=== PATIENT | female | born 2000 | race Caucasian/White ===

== ENCOUNTER 2024-11-10 14:32 | Outpatient (AMB) | payer MEDICAID, SELFPAY ==
[2024-11-10 14:48] VITALS: BP 110/71; PULSE 92; RESP 17; TEMP 36.7; O2SAT 98; BMI 34.1
--- NOTE | 2024-11-10 14:48 | OBCLNT_ITS ---
Vital Signs 11/10/24 14:48 Height 1.57 m Height Method Stated Weight 84.595 kg Weight Measurement Method Standing Scale BMI 34.1 BP 110/71 Blood Pressure Source Automatic Cuff Blood Pressure Location Right Upper Arm Position Sitting Respiration 17 Pulse 92 Pulse Source Monitor Temp 98.1 F Temp Source Temporal Artery Scan Pulse Oximetry (%) 98 Oxygen Delivery Method Room Air Allergies/Home Meds Allergies & Medications Allergies No Known Allergies Allergy (Verified 11/10/24 14:49) Medication Reconciliation vits no.126-ferrous fum 28 mg iron-folic acid 800 mcg tablet (Classic ) tab PO 11/10/24 [History Confirmed 11/10/24] Intake Visit Data Collection New Patient or Established: New Patient (never been to [facility]) Reason for Visit:: OBI TRANSFER Seen by Clinical Staff ONLY (RN/MA): No Auricular Therapist Required: No Do You Feel Safe at Home: Yes Authorities Contacted: N/A PCP or OBGYN visit in last 3 months: No Hx Now: Yes Are you currently on any form of Control: No Pain Present Currently: No Pain Scale Used: Thao-Moreno/Numerical Pain scale:: 0 Smoking Status Smoking Status: Never smoker Questionnaires Covid-19 Vaccine Questionnaire Has patient been vacinated for Covid-19 Have you been vacinated for Covid-19: No PHQ-9 PHQ-2 Over the last 2 weeks, how often have you been bothered by any of the following problems? 1. Little interest or pleasure in doing things: not at all 2. Feeling down, depressed, or hopeless: not at all Total score: 0 PHQ-9 3. Trouble falling or staying asleep, or sleeping too much: Not at all 4. Feeling tired or having little energy: Not at all 5. Poor appetite or overeating: Not at all 6. Feeling bad about yourself - or that you are a failure or have let yourself or your family down: Not at all 7. Trouble concentrating on things, such as reading the newspaper or watching television: Not at all 8. Moving or speaking so slowly that other people could have noticed? - Or the opposite - being so fidgety or restless that you have been moving around a lot more than usual: not at all 9. Thoughts that you would be better off or of hurting yourself in some way: Not at all Total score: 0 If you checked off any problems, how difficult have these problems made it for you to do your work, take care of things at home, or get along with other people?: not difficult at all Source: Developed by Drs. Eugene Schwartz, Lisa Aragon, James Neri and colleagues, with an educational mauricio from [employer]. Depression screen completed yes Social History Living Situation History Marital Status: Life Partner Lives With: Significant Other Housing: House Tobacco History Smoking Status: Never smoker Second Hand Smoke Exposure: No Alcohol History Alcohol Intake: Never Domestic Abuse History Do You Feel Safe at Home: Yes History of Present Illness HPI Narrative Drea Becker, , presents for routine visit at 28 weeks gestation. No contractions, LOF, VB and reports good FM. Denies PRYOR, VC, and epigastric pain. - Drea Becker is a female presenting for transfer of care from [facility], Dr. Solomon. - Estimated due date: 01-23-2025 - Based on last menstrual period - Confirmed by early ultrasound on 07-31-2024 - Obstetric history: - 1, Para 0 - No history of previous uterine surgery - Patient is Rh-negative and due for RhoGAM injection - Chlamydia positive on initial labs (07-18-2024) - Patient reports no current concerns or symptoms - Fetus identified as female through NIPT - Planned name: [facility] Initial Visit OB Flowsheet OB Flowsheet Initial Weight: Not Recorded Date -?-?-?-?-?-?-?-?-?-?-?-?- EGA Weight BP Alb Glu CTX Pres Fundal ht FHR Mov Dilation Station Effacement Hx Notes Visit Note 11/10/24 -?-?-?-?-?-?-?-?-?-?-?-?- 29w 3d 84.595 kg 110/71 absent unknown 28 160 active No CTX/LOF/VB, good FM. Rh-negative, Rhogam given today. heart rate 160 bpm. Plan: F/u 4 weeks, then q2 weeks. Service Tech/Welder on movement monitoring, signs of labor, preeclampsia precautions. OB History : 1 Para: 0 Exam General General Appearance: alert, in no apparent distress and healthy appearing Head Head exam: atraumatic Neck Neck exam: Present normal inspection and trachea midline Chest Chest inspection: Present normal inspection and symmetric chest wall rise External exam: Present normal external exam; Absent tenderness Neuro Neurological exam: Present oriented X3 Psych Psychiatric exam: Present normal affect and normal mood Office Procedures OB Clinic LOC & Office Proc's Nursing/Assessment Patient Status: Initial/New Patient OB Clinic Nursing Assessment: Medication Reconciliation, Update PMH in EMR and Vital Signs OB Clinic Coordination of Care: Complex Care and Chronic Disease 1-5, Consent,records obtained, informed consent, Education Simp Pt/Fam and Staff clarify orders Special Needs: Heart tones New Patient Charge New Patient Point Assignment: 1114 New Patient Point Charge: LEAD RIDER Level 3 ([id number]) Injection/Vaccine Admin Admin 1st Vaccine: Yes Office Meds Rhophylac 1,500 unit (300 mcg)/2 mL injection syringe Performing Provider: Franklin Peters MD Performing Location: [facility] Administered by: Josi Spencer MA on 11/10/24 15:09 Dose Route Admin Location Dispensed Lot Number Expiration Date [facility] Director 1,500 unit IM RIGHT GLUTE 2 mL [id number] 10/17/26 16820-720-65 [employer] BERD Comments: PT WIATED 15 MIN NO REACTION Assessment & Plan Diagnosis / Problem List (1) Supervision of high risk , unspecified, third trimester: Status: Acute (2) Rh negative state in antepartum period: Status: Acute Plan Problem List - , first trimester - Rh-negative blood type - Chlamydia infection Assessment at 28 weeks gestation with FILOMENA 01/23/2025 based on LMP and consistent with early ultrasound. Patient is Rh-negative, requiring Rhogam administration. Chlamydia positive on initial labs. One-hour glucose tolerance test result of 145 on 10/18/2024. NIPT negative, consistent with female fetus. Normal heart rate of 160 bpm on current exam. All other labs within normal limits, including hemoglobin 12.4, platelets 215, negative antibody screen, RPR non-reactive, HIV negative, hepatitis B negative, rubella immune, and AFP negative. Plan - Administer Rhogam injection (patient is Rh-negative) - Schedule next appointment in 4 weeks - Subsequent appointments to be scheduled every 2 weeks after the next visit
== END 2024-11-10 15:17 | disposition home or self-care (01) ==
LOC: HODSOBC 14:32
PROVIDERS: Supervising Provider Obstetrics & Gynecology; Visit Provider Obstetrics & Gynecology
DX: O09.893 Supervision of other high risk pregnancies, third trimester (principal); O26.893 Other specified pregnancy related conditions, third trimester; Z67.91 Unspecified blood type, Rh negative; Z3A.29 29 weeks gestation of pregnancy
CPT/HCPCS: 90471; 96372; 99203; J3490; G0463; J2791

== ENCOUNTER 2024-12-26 09:07 | Outpatient (AMB) | payer MEDICAID, SELFPAY ==
[2024-12-26 09:25] VITALS: BP 123/84; PULSE 100; RESP 17; TEMP 36.6; O2SAT 98; BMI 36.8
--- NOTE | 2024-12-26 09:25 | AMB.OBVISIT ---
Vital Signs 12/26/24 09:25 Height 1.57 m Height Method Measured Weight 90.832 kg Weight Measurement Method Standing Scale BMI 36.8 BP 123/84 Blood Pressure Source Automatic Cuff Blood Pressure Location Right Upper Arm Position Sitting Respiration 17 Pulse 100 Pulse Source Monitor Temp 97.8 F Temp Source Temporal Artery Scan Pulse Oximetry (%) 98 Oxygen Delivery Method Room Air Allergies/Home Meds Allergies & Medications Allergies No Known Allergies Allergy (Verified 01/20/25 18:57) Medication Reconciliation vits no.126-ferrous fum 28 mg iron-folic acid 800 mcg tablet (Classic ) 1 tab PO QDAY 11/10/24 [History Confirmed 01/15/25] Intake Visit Data Collection New Patient or Established: Established Patient (seen at [facility] within 3 years) Reason for Visit:: OBC Consent obtained for Telemed Visit: No Seen by Clinical Staff ONLY (RN/MA): No [place] Reo Required: No Do You Feel Safe at Home: Yes Authorities Contacted: N/A PCP or OBGYN visit in last 3 months: Yes Date of Last PCP or OBGYN visit: 11/10/24 Hx Now: Yes Are you currently on any form of Control: No Pain Present Currently: No Pain Scale Used: Thao-Moreno/Numerical Pain scale:: 0 Smoking Status Smoking Status: Never smoker Questionnaires Covid-19 Vaccine Questionnaire Has patient been vacinated for Covid-19 Have you been vacinated for Covid-19: No PHQ-9 PHQ-2 Over the last 2 weeks, how often have you been bothered by any of the following problems? 1. Little interest or pleasure in doing things: not at all PHQ-9 8. Moving or speaking so slowly that other people could have noticed? - Or the opposite - being so fidgety or restless that you have been moving around a lot more than usual: not at all Source: Developed by Drs. Eugene Schwartz, Lisa Aragon, James Neri and colleagues, with an educational mauricio from [employer]. Social History Living Situation History Lives With: Significant Other Housing: House Tobacco History Smoking Status: Never smoker Second Hand Smoke Exposure: No Alcohol History Alcohol Intake: Never Domestic Abuse History Do You Feel Safe at Home: Yes Care OB Visit Log OB Flowsheet Initial Weight: Not Recorded Date <del>?</del> EGA Weight BP Alb Glu CTX Pres Fundal ht FHR Mov Dilation Station Effacement Hx Notes Visit Note 11/10/24 <del>?</del> 29w 3d 84.595 kg 110/71 absent unknown 28 160 active No CTX/LOF/VB, good FM. Rh-negative, Rhogam given today. heart rate 160 bpm. Plan: F/u 4 weeks, then q2 weeks. Environmental Technology Professor on movement monitoring, signs of labor, preeclampsia precautions. 12/26/24 <del>?</del> 36w 0d 90.832 kg 123/84 occasional cephalic 36 170 active - Patient reports: - No contractions - No pressure - No other issues - movement: Active - Patient denies any current concerns or symptoms - Follow-up appointment scheduled for 1 week - Continue weekly appointments until 39 weeks gestation - At 39 weeks, check for cervical dilation - Patient instructed to perform vaginal swab for Group B Strep screening - No intervention planned before 39 weeks unless spontaneous labor occurs - Option for induction after 39 weeks if desired - Due date confirmed as January 23 01/02/25 <del>?</del> 37w 0d 92.306 kg 130/81 absent cephalic 37 158 active 37w0d , GBS negative, cephalic presentation, no CTX/LOF/VB, FHR 158, FM present. Plan: Return in 1 week, continue routine care, membrane sweep at 39w, recommend walking and ball exercises, go to L&D if CTX or concerning symptoms. 01/09/25 <del>?</del> 38w 0d 92.986 kg 119/83 absent cephalic 38 126 active - No contractions - Feeling pressure, which is noted to be normal - Experiencing carpal tunnel symptoms due to fluid retention - Active movement - No leaking or bleeding - Some vaginal discharge, which is noted to be normal - Follow-up appointment scheduled for 39 weeks gestation - Cervical check and membrane sweep planned for next appointment - Continue vitamins - Maintain hydration to prevent UTIs - Stay active FILOMENA Calculator Estimated Delivery Date Method Current WG Current Estimate 01/23/25 LMP (Certain) 40w 0d Office Procedures OB Clinic LOC & Office Proc's Nursing/Assessment Patient Status: Established Patient OB Clinic Nursing Assessment: Medication Reconciliation, Update PMH in EMR and Vital Signs OB Clinic Coordination of Care: Complex Care and Chronic Disease 1-5, Consent,records obtained, informed consent, Education Simp Pt/Fam and Results/Orders obtained Special Needs: Heart tones Established Patient Charge Established Patient Point Assignment: 110 Established Patient Point Charge: EP Level 3 (80-115) Assessment & Plan Diagnosis / Problem List (1) Supervision of high risk , unspecified, third trimester: Status: Acute
== END 2024-12-26 09:38 | disposition home or self-care (01) ==
LOC: HODSOBC 09:07
PROVIDERS: Supervising Provider Obstetrics & Gynecology; Visit Provider Obstetrics & Gynecology
DX: O09.93 Supervision of high risk pregnancy, unspecified, third trimester (principal); Z3A.36 36 weeks gestation of pregnancy; Z36.85 Encounter for antenatal screening for Streptococcus B
CPT/HCPCS: 99213; G0463

== ENCOUNTER 2025-01-02 13:42 | Outpatient (AMB) | payer MEDICAID, SELFPAY ==
[2025-01-02 14:06] VITALS: BP 130/81; PULSE 86; RESP 17; TEMP 36.3; O2SAT 98; BMI 37.4
--- NOTE | 2025-01-02 14:06 | OBCLNT_ITS ---
Vital Signs 01/02/25 14:06 Height 1.57 m Height Method Measured Weight 92.306 kg Weight Measurement Method Standing Scale BMI 37.4 BP 130/81 Blood Pressure Source Automatic Cuff Blood Pressure Location Right Upper Arm Position Sitting Respiration 17 Pulse 86 Pulse Source Monitor Temp 97.3 F Temp Source Temporal Artery Scan Pulse Oximetry (%) 98 Oxygen Delivery Method Room Air Allergies/Home Meds Allergies & Medications Allergies No Known Allergies Allergy (Verified 01/02/25 14:07) Medication Reconciliation vits no.126-ferrous fum 28 mg iron-folic acid 800 mcg tablet (Classic ) tab PO 11/10/24 [History Confirmed 01/02/25] Intake Visit Data Collection New Patient or Established: Established Patient (seen at [facility] within 3 years) Reason for Visit:: OBC Consent obtained for Telemed Visit: No Seen by Clinical Staff ONLY (RN/MA): No Coach Tour Driver Required: No Do You Feel Safe at Home: Yes Authorities Contacted: N/A PCP or OBGYN visit in last 3 months: Yes Date of Last PCP or OBGYN visit: 12/26/24 Hx Now: Yes Are you currently on any form of Control: No Pain Present Currently: No Pain Scale Used: Thoa-Moreno/Numerical Pain scale:: 0 Smoking Status Smoking Status: Never smoker Questionnaires Covid-19 Vaccine Questionnaire Has patient been vacinated for Covid-19 Have you been vacinated for Covid-19: No PHQ-9 PHQ-2 Over the last 2 weeks, how often have you been bothered by any of the following problems? 1. Little interest or pleasure in doing things: not at all PHQ-9 8. Moving or speaking so slowly that other people could have noticed? - Or the opposite - being so fidgety or restless that you have been moving around a lot more than usual: not at all Source: Developed by Drs. Eugene Schwartz, Lisa Aragon, James Neri and colleagues, with an educational mauricio from [employer]. Social History Living Situation History Lives With: Significant Other Housing: House Tobacco History Smoking Status: Never smoker Second Hand Smoke Exposure: No Alcohol History Alcohol Intake: Never Domestic Abuse History Do You Feel Safe at Home: Yes Care OB Visit Log OB Flowsheet Initial Weight: Not Recorded Date -?-?-?-?-?-?-?-?-?-?-?-?- EGA Weight BP Alb Glu CTX Pres Fundal ht FHR Mov Dilation Station Effacement Hx Notes Visit Note 11/10/24 -?-?-?-?-?-?-?-?-?-?-?-?- 29w 3d 84.595 kg 110/71 absent unknown 28 160 active No CTX/LOF/VB, good FM. Rh-negative, Rhogam given today. heart rate 160 bpm. Plan: F/u 4 weeks, then q2 weeks. Commodities Trader on movement monitoring, signs of labor, preeclampsia precautions. 01/02/25 -?-?-?-?-?-?-?-?-?-?-?-?- 37w 0d 92.306 kg 130/81 absent cephalic 37 158 active 37w0d , GBS negative, cephalic presentation, no CTX/LOF/VB, FHR 158, FM present. Plan: Return in 1 week, continue routine care, membrane sweep at 39w, recommend walking and ball exercises, go to L&D if CTX or concerning symptoms. FILOMENA Calculator Estimated Delivery Date Method Current WG Current Estimate 01/23/25 LMP (Certain) 37w 0d Office Procedures OB Clinic LOC & Office Proc's Nursing/Assessment Patient Status: Established Patient OB Clinic Nursing Assessment: Medication Reconciliation, Update PMH in EMR and Vital Signs OB Clinic Coordination of Care: Complex Care and Chronic Disease 1-5, Consent,records obtained, informed consent, Education Simp Pt/Fam, 4+ Authorizations needed, Lab and Imaging orders and Results/Orders obtained Special Needs: Heart tones Established Patient Charge Established Patient Point Assignment: 150 Established Patient Point Charge: EP Level 4 (120-155) Assessment & Plan Diagnosis / Problem List (1) Supervision of high risk , unspecified, third trimester: Status: Acute (2) Rh negative state in antepartum period: Status: Acute
== END 2025-01-02 14:20 | disposition home or self-care (01) ==
LOC: HODSOBC 13:42
PROVIDERS: Supervising Provider Obstetrics & Gynecology; Visit Provider Obstetrics & Gynecology
DX: O09.893 Supervision of other high risk pregnancies, third trimester (principal); Z67.91 Unspecified blood type, Rh negative; Z3A.37 37 weeks gestation of pregnancy
CPT/HCPCS: 99214; G0463

== ENCOUNTER 2025-01-09 09:07 | Outpatient (AMB) | payer MEDICAID, SELFPAY ==
[2025-01-09 09:12] VITALS: BP 119/83; PULSE 98; RESP 17; TEMP 36.8; O2SAT 98; BMI 37.7
--- NOTE | 2025-01-09 09:12 | OBCLNT_ITS ---
Vital Signs 01/09/25 09:12 Height 1.57 m Height Method Measured Weight 92.986 kg Weight Measurement Method Standing Scale BMI 37.7 BP 119/83 Blood Pressure Source Automatic Cuff Blood Pressure Location Right Upper Arm Position Sitting Respiration 17 Pulse 98 Pulse Source Monitor Temp 98.2 F Temp Source Temporal Artery Scan Pulse Oximetry (%) 98 Oxygen Delivery Method Room Air Allergies/Home Meds Allergies & Medications Allergies No Known Allergies Allergy (Verified 01/20/25 18:57) Medication Reconciliation vits no.126-ferrous fum 28 mg iron-folic acid 800 mcg tablet (Classic ) 1 tab PO QDAY 11/10/24 [History Confirmed 01/15/25] Intake Visit Data Collection New Patient or Established: Established Patient (seen at [facility] within 3 years) Reason for Visit:: OBC Consent obtained for Telemed Visit: No Seen by Clinical Staff ONLY (RN/MA): No Sleep Scientist Required: No Do You Feel Safe at Home: Yes Authorities Contacted: N/A PCP or OBGYN visit in last 3 months: Yes Date of Last PCP or OBGYN visit: 01/02/25 Hx Now: Yes Are you currently on any form of Control: No Pain Present Currently: No Pain Scale Used: Thao-Moreno/Numerical Pain scale:: 0 Smoking Status Smoking Status: Never smoker Questionnaires Covid-19 Vaccine Questionnaire Has patient been vacinated for Covid-19 Have you been vacinated for Covid-19: No PHQ-9 PHQ-2 Over the last 2 weeks, how often have you been bothered by any of the following problems? 1. Little interest or pleasure in doing things: not at all PHQ-9 8. Moving or speaking so slowly that other people could have noticed? - Or the opposite - being so fidgety or restless that you have been moving around a lot more than usual: not at all Source: Developed by Drs. Eugene Schwartz, Lisa Aragon, James Neri and colleagues, with an educational mauricio from [employer]. Social History Living Situation History Lives With: Significant Other Housing: House Tobacco History Smoking Status: Never smoker Second Hand Smoke Exposure: No Alcohol History Alcohol Intake: Never Domestic Abuse History Do You Feel Safe at Home: Yes Care OB Visit Log OB Flowsheet Initial Weight: Not Recorded Date -?-?-?-?-?-?-?-?-?-?-?-?- EGA Weight BP Alb Glu CTX Pres Fundal ht FHR Mov Dilation Station Effacement Hx Notes Visit Note 11/10/24 -?-?-?-?-?-?-?-?-?-?-?-?- 29w 3d 84.595 kg 110/71 absent unknown 28 160 active No CTX/LOF/VB, good FM. Rh-negative, Rhogam given today. heart rate 160 bpm. Plan: F/u 4 weeks, then q2 weeks. Contract Clerk on movement monitoring, signs of labor, preeclampsia precautions. 01/02/25 -?-?-?-?-?-?-?-?-?-?-?-?- 37w 0d 92.306 kg 130/81 absent cephalic 37 158 active 37w0d , GBS negative, cephalic presentation, no CTX/LOF/VB, FHR 158, FM present. Plan: Return in 1 week, continue routine care, membrane sweep at 39w, recommend walking and ball exercises, go to L&D if CTX or concerning symptoms. 01/09/25 -?-?-?-?-?-?-?-?-?-?-?-?- 38w 0d 92.986 kg 119/83 absent cephalic 38 126 active - No contractions - Feeling pressure, which is noted to be normal - Experiencing carpal tunnel symptoms due to fluid retention - Active movement - No leaking or bleeding - Some vaginal discharge, which is noted to be normal - Follow-up appointment scheduled for 39 weeks gestation - Cervical check and membrane sweep plan eva for next appointment - Continue vitamins - Maintain hydration to prevent UTIs - Stay active FILOMENA Calculator Estimated Delivery Date Method Current WG Current Estimate 01/23/25 LMP (Certain) 40w 0d Office Procedures OB Clinic LOC & Office Proc's Nursing/Assessment Patient Status: Established Patient OB Clinic Nursing Assessment: Medication Reconciliation, Update PMH in EMR and Vital Signs OB Clinic Coordination of Care: Complex Care and Chronic Disease 1-5, Consent,records obtained, informed consent and Education Simp Pt/Fam Special Needs: Heart tones Established Patient Charge Established Patient Point Assignment: 105 Established Patient Point Charge: EP Level 3 (80-115) Assessment & Plan Diagnosis / Problem List (1) Normal labor and delivery: Status: Acute (2) Supervision of high risk , unspecified, third trimester: Status: Acute
== END 2025-01-09 09:34 | disposition home or self-care (01) ==
LOC: HODSOBC 09:07
PROVIDERS: Supervising Provider Obstetrics & Gynecology; Visit Provider Obstetrics & Gynecology
DX: O09.893 Supervision of other high risk pregnancies, third trimester (principal); O12.03 Gestational edema, third trimester; Z3A.38 38 weeks gestation of pregnancy
CPT/HCPCS: 99213; G0463

== ENCOUNTER 2025-01-15 15:06 | Inpatient (IN) | payer MEDICAID, SELFPAY ==
[2025-01-15] VITALS (121 sets, daily range): BP systolic 121–166; BP diastolic 71–101; PULSE 67–99; RESP 16–99; TEMP 36.9; O2SAT 88–100; BMI 38.1
[2025-01-15 17:07] LABS: Collection Type, Urine Clean Catch
[2025-01-15 17:11] LABS: Basophils # (Auto) 0.0 Thou/mm3 (0.0-0.2); Basophils % (Auto) 0 % (0-2.5); Eosinophils # (Auto) 0.0 Thou/mm3 (0.0-0.5); Eosinophils % (Auto) 0 % (0-10); Hematocrit 35.0 % (36.0-46.0); Hemoglobin 12.0 g/dL (12.0-16.0); Immature Granulocytes Auto 0.09 Thou/mm3 (0.00-0.00); Lymphocytes # (Auto) 1.6 Thou/mm3 (1.0-4.8); Lymphocytes % (Auto) 15 % (10-50); Mean Corpuscular HGB Conc 34.3 g/dl (31.0-37.0); Mean Corpuscular Hemoglobin 30.3 pg (25.0-35.0); Mean Corpuscular Volume 88 fL (80-100); Monocytes # (Auto) 0.5 Thou/mm3 (0.0-0.8); Monocytes % (Auto) 5 % (0-12); Neutrophils # (Auto) 8.7 Thou/mm3 (1.8-7.7); Neutrophils % (Auto) 79 % (37-80); Nucleated Red Blood Cell # 0.00 Thou/mm3 (0.00-0.00); Nucleated Red Blood Cell % 0 /100 WBC (0); Platelet Count 177 Thou/mm3 (140-440); RDW Standard Deviation 42.4 fL (36.4-46.3); Red Blood Count 3.96 Miln/mm3 (4.00-5.20); White Blood Count 10.9 Thou/mm3 (3.6-11.0)
--- NOTE | 2025-01-15 17:18 | XR_ITS ---
Examination: Complete OB ultrasound greater than 14 weeks Date and time of exam: January 15, 2025, 1809 hrs. Indications: Labor evaluation, unknown weight Findings: Viable intrauterine single fetus with single amniotic sac presentation cephalic Cardiac motion 133 BPM. Placenta anterior grade 3. Umbilical cord insertion 3 vessel seen. Amniotic fluid index 4.6 cm. Cervix 4.1 cm. Ovaries obscured by the fetus.. Composite estimated gestational age based on BPD, head circumference, abdominal circumference, femur length is 39 weeks 1 day. Estimated weight 3799.1 g.. Survey of intracranial anatomy, spinal anatomy, abdominal anatomy, four-chamber heart performed with no abnormalities identified. Impression: Viable intrauterine gestation cephalic presentation..
[2025-01-15 17:39] LABS: Fibrinogen 408 mg/dL (175-375); INR 0.9 (0.9-1.3); Partial Thromboplastin Time 27.8 Seconds (22.0-36.0); Prothrombin Time 9.8 Seconds (9.0-12.2)
[2025-01-15 17:55] LABS: Bacteria,Urine 1+; Bilirubin,Urine Negative (Negative); Blood,Urine Trace (Negative); Clarity,Urine Clear (Clear/Hazy); Color,Urine Lt-Yellow (Lt Yel-Yel); Glucose, Urine Negative (Negative); Ketones,Urine Trace (Negative); Leukocyte Esterase,Urine Negative (Negative); Nitrite,Urine Negative (Negative); PH,Urine 6.5 (5.0-7.0); Protein,Urine 2+ (Neg - Trace); RBC,Urine 1 /hpf (0-3); Specific Gravity,Urine 1.010 (1.001-1.035); Squamous Epithelial Cell,Urine 6 /hpf (0-5); Urobilinogen,Urine Negative mg/dL (0.0-1.0); WBC,Urine 4 /hpf (0-5)
[2025-01-15 18:05] LABS: Creatinine,Random Urine 75 mg/dL (30-125); Protein Total, Random Urine 145 mg/dL (1-14)
[2025-01-15 18:07] LABS: Albumin, Serum 3.4 gm/dL (3.5-5.0); Albumin/Globulin Ratio 1.7 (1.2-2.2); Alkaline Phosphatase 180 U/L (46-116); Anion Gap 11 (7-16); Aspartate Amino Transferase 13 U/L (0-34); BUN/Creatinine Ratio 12 Ratio (12-20); Bilirubin,Total 0.4 mg/dL (0.3-1.2); Blood Urea Nitrogen 6 mg/dL (9-23); Calcium 9.2 mg/dL (8.3-10.6); Calcium (Corrected) 9.7 mg/dL (8.5-10.1); Carbon Dioxide 19.8 mMol/L (20.0-31.0); Chloride 110 mMol/L (98-107); Creatinine (Component) 0.5 mg/dL (0.6-1.3); Estimated Creatinine Clearance 187.6 mL/min (>60); Globulin 2.0 gm/dL (2.3-3.5); Glucose 92 mg/dL (74-106); LDH (Lactate Dehydrogenase) 165 U/L (120-246); Osmolality,Calculated 278 (275-295); Potassium 3.9 mMol/L (3.4-5.1); Sodium 141 mMol/L (136-145); Total Protein 5.4 gm/dL (5.7-8.2); Uric Acid 4.5 mg/dL (3.1-7.8); eGFR > 60 See Note
[2025-01-15 18:19] LABS: Alanine Aminotransferase 9 U/L (10-49)
[2025-01-15] MEDS: RINGERS LACTATED 1000 ML 1,000 ML 999 ML IV (20:16)
[2025-01-15] MEDS: RINGERS LACTATED 1000 ML 1,000 ML 125 ML IV (20:17)
[2025-01-15 20:18] LABS: Syphilis Nonreactive (Nonreactive)
--- NOTE | 2025-01-15 20:42 | ESHP_ITS ---
Documentation for date of: 01/15/25 OB Labor/Induct. HPI History of Present Illness Chief complaint: labor : 1 Para: 0 Term pregnancies: 0 pregnancies: 0 Living children: 0 History of Abortions: Spontaneous and Elective: 0 History of Vaginal deliveries: 0 History of sections: No History of : No Date of last menstrual period: 04/18/25 FILOMENA: 01/23/25 Gestational Age (weeks): 38 Gestational Age (days): 6 Gestational age based on last menstrual period: -13 History of present illness: 24-year-old 1 para 0 with complaints of labor admitted to labor and delivery. Patient was OB transfer from Dr. Solomon office with records. Last. April 18, 2025. Estimated due date January 23, 2025. Patient has a history of positive chlamydia. Her and her partner were treated with Zithromax x 1. Test of cure in October was negative. GC has been negative throughout. Patient is O-, antibody screen negative, she got RhoGAM at 28 weeks. Hepatitis B negative, HIV negative, hep C negative, had a abnormal 1 hour every 3 hours normal. And GBS is negative. Patient denies existence of any chronic illness. Denies social habits. She has had no surgeries. History of Present Dating criteria: LMP confirmed by 1st trimester US Adequate Care: Yes Ultrasounds: normal 1st trimester US and normal mid trimester US Obstetrical complications: none Medical complications: none Review of Systems Review of Systems Systems Reviewed: All systems reviewed, normal except as documented Past Medical History Surgical History SURGICAL: Negative Section Meds Home Medications and Allergies Home Medications ?Medication ?Instructions ?Recorded ?Confirmed ?Type vits no.126-ferrous fum 1 tab PO QDAY 2 5 01/15/25 History 28 mg iron-folic acid 800 mcg tablet (Classic ) Allergies Allergy/AdvReac Type Severity Reaction Status Date / Time No Known Allergies Allergy Verified 01/15/25 15:29 OB Exam Physical Exam Vital signs: Temp Pulse Resp BP Pulse Ox 98.5 F 90 16 133/78 H 100 01/15/25 15:06 01/15/25 20:28 01/15/25 19:13 01/15/25 20:28 01/15/25 20:40 Narrative: Normal heart rate and rhythm. Lungs clear no wheezes. Gravid abdomen. Gynecoid pelvis. Estimated weight 3700 g. Blood pressures on admission were elevated 140s over 80s. There was 1 blood pressure 140/90 and then they came down 120s over 70. Her PIH labs she had an elevated protein creatinine ratio that was 1.9. Livers were normal. 3+ proteinuria. And CONSTANCE was 4.6. Cervical exam on admission was 250-3. And then the patient progressed to 4/80/- 2 Detailed Labor and Delivery Exam Dilation (cm): 4 Effacement (%): 80 Cervix position: mid station: -2 Consistency: soft Presentation: Vertex Cervical ripeness score: 8 Membranes: intact Baseline heart rate: 135 monitor accelerations: 15x15 monitor decelerations: None terminal press operator variability: Moderate (11-25) Contraction frequency (min): 4-7 Contraction duration (sec): 30 Tachysystole: No Contraction intensity: Mild OB Results Labs 01/15/25 16:15 01/15/25 16:15 Labs: Short CBC 01/15/25 Range/Units 16:15 WBC 10.9 (3.6-11.0) Thou/mm3 Hgb 12.0 (12.0-16.0) g/dL Hct 35.0 L (36.0-46.0) % Plt Count 177 (140-440) Thou/mm3 BMP 01/15/25 16:15 Sodium 141 Potassium 3.9 Chloride 110 H Carbon Dioxide 19.8 L BUN 6 L Creatinine 0.5 L Glucose 92 Calcium 9.2 Liver Function 01/15/25 Range/Units 16:15 Total Bilirubin 0.4 (0.3-1.2) mg/dL AST 13 (0-34) U/L ALT 9 L (10-49) U/L Alkaline Phosphatase 180 H (46-116) U/L Albumin 3.4 L (3.5-5.0) gm/dL Urine 01/15/25 Range/Units 16:15 Urine Color Lt-Yellow (Lt Yel-Yel) Urine Clarity Clear (Clear/Hazy) Urine pH 6.5 (5.0-7.0) Ur Specific [place] 1.010 (1.001-1.035) Urine Protein 2+ A (Neg - Trace) Urine Glucose (UA) Negative (Negative) OB Assessment & Plan Assessment and Plan (1) Normal labor and delivery: Status: Acute Additional Plan Induction method: per pitocin protocol Plan: augmentation and consult MD baltazar
[2025-01-15] MEDS: OXYTOCIN in NS 30 units 30 UNIT/500 ML BAG IV (22:30)
[2025-01-16] VITALS (174 sets, daily range): BP systolic 114–148; BP diastolic 62–93; PULSE 65–169; RESP 16–20; TEMP 37–37.4; O2SAT 84–100
[2025-01-16] MEDS: OXYTOCIN INJ 10 UNIT/ML VIAL IM (08:12)
[2025-01-16] MEDS: MINERAL OIL 30 ML UDC TOP (08:16)
[2025-01-16] MEDS: TRANEXAMIC ACID 1,000 MG IVPB 1,000 MG/100 ML BAG 200 MG IV (08:41)
--- NOTE | 2025-01-16 08:44 | OBDSUM_ITS ---
Data (Pena) Data Hx Section: No : 1 Term: 0 : 0 Livin Abortions: Spontaneous & Theraputic: 0 Delivery Data (Pena) Labor Data Initiation of labor: Spontaneous Induction/Augmentation Agent: Pitocin ROM date: 01/16/25 ROM time: 04:45 Amniotic membrane rupture type: Spontaneous Amniotic fluid description: Clear Delivery Data EDC: 01/23/25 EDC calculated by:: LMP/early US confirmation Date of arrival to unit: 01/15/25 Time of arrival to unit: 15:08 Onset of labor date: 01/15/25 Onset of labor time: 20:00 Complete dilation date: 01/16/25 Complete dilation time: 07:01 [place] delivery date: 01/16/25 [place] delivery time: 08:08 Gestational age (weeks): 38 Gestational age (days): 6 Placenta delivery date: 01/16/25 Placenta delivery time: 08:13 Delivered by: crys asencio Delivery nurse: malka Noe nurse: yaneli moraes Hand Upper And Bottom Lacer at delivery: No Support person(s) at delivery: fob, sister Delivery Method Delivery method: Normal Vaginal Delivery Presentation: Vertex position: OA Anesthesia Type Anesthesia Type: Epidural Delivery Room Medications Delivery room medications: Pitocin 10 u IM, Pitocin 20 u IV, Cytotec 800 ND and other (TXA) Placenta Placenta delivery description: Spontaneous (inspected. intact) Cord blood sent to lab: Yes cord blood collection: Cord Blood Type Episiotomy Episiotomy description: Midline Perineal repair Sutures used for repair: 3.0 Vicryl (2.0) EBL Estimated blood loss (ml): 400 Umbilical Cord cord description: 3 Vessels and Nuchal Cord (x1) Data (Pena) Data order: 1 [place]'s gender: Female Identification band number: [id number] weight (gms): 3.41 g Weight (pounds): 0 lbs and 0.1 ozs length: 52 cm 1 minute: 7 5 minutes: 9
[2025-01-16] MEDS: OXYTOCIN in NS 20 units 20 UNIT/1,000 ML BAG 125 UNIT IV (09:00)
[2025-01-16] MEDS: IBUPROFEN TAB 400 MG TABLET 800 MG PO ×2 (09:38→20:41)
[2025-01-16] MEDS: ACETAMINOPHEN 325 MG TABLET 650 MG PO (17:40)
[2025-01-16 17:50] LABS: Basophils # (Auto) 0.0 Thou/mm3 (0.0-0.2); Basophils % (Auto) 0 % (0-2.5); Eosinophils # (Auto) 0.0 Thou/mm3 (0.0-0.5); Eosinophils % (Auto) 0 % (0-10); Hematocrit 28.9 % (36.0-46.0); Hemoglobin 9.9 g/dL (12.0-16.0); Immature Granulocytes Auto 0.14 Thou/mm3 (0.00-0.00); Lymphocytes # (Auto) 1.2 Thou/mm3 (1.0-4.8); Lymphocytes % (Auto) 7 % (10-50); Mean Corpuscular HGB Conc 34.3 g/dl (31.0-37.0); Mean Corpuscular Hemoglobin 30.8 pg (25.0-35.0); Mean Corpuscular Volume 90 fL (80-100); Monocytes # (Auto) 1.1 Thou/mm3 (0.0-0.8); Monocytes % (Auto) 6 % (0-12); Neutrophils # (Auto) 15.1 Thou/mm3 (1.8-7.7); Neutrophils % (Auto) 86 % (37-80); Nucleated Red Blood Cell # 0.00 Thou/mm3 (0.00-0.00); Nucleated Red Blood Cell % 0 /100 WBC (0); Platelet Count 134 Thou/mm3 (140-440); RDW Standard Deviation 43.4 fL (36.4-46.3); Red Blood Count 3.21 Miln/mm3 (4.00-5.20); White Blood Count 17.6 Thou/mm3 (3.6-11.0)
[2025-01-16] MEDS: DOCUSATE SOD 100 MG CAPSULE PO (20:33)
[2025-01-17] VITALS (8 sets, daily range): BP systolic 111–132; BP diastolic 73–88; PULSE 67–98; RESP 12–20; TEMP 36.6–38; O2SAT 98–100
[2025-01-17] MEDS: ACETAMINOPHEN 325 MG TABLET 650 MG PO ×3 (00:18→15:45)
[2025-01-17] MEDS: IBUPROFEN TAB 400 MG TABLET 800 MG PO ×2 (08:27→17:46)
[2025-01-17] MEDS: DOCUSATE SOD 100 MG CAPSULE PO ×2 (08:27→22:05)
--- NOTE | 2025-01-17 08:49 | ESPR_ITS ---
Subjective Subjective Interval history: Complains of occasional headache that is improved with Tylenol ibuprofen. Denies blurred vision or epigastric pain. Patient is breast and bottlefeeding. No dizziness. Backache that is improved by wearing a maternity girdle Exam Vital Signs Temp Pulse Resp BP Pulse Ox O2 Del Method 98.3 F 98 17 111/73 100 Room Air 01/17/25 04:45 01/17/25 04:45 01/17/25 04:45 01/17/25 04:45 01/17/25 04:45 01/17/25 04:45 Narrative Exam Normal heart rate and rhythm. Breasts are soft. Euthyroid. Fundus firm below the mellitus. Perineum is healing intact. Minimal swelling. Small lochia. Uterus is well involuted below umbilicus. Negative Homans' sign. Objective Labs 01/16/25 16:30 01/15/25 16:15 Labs: Laboratory Results - last 24 hr 01/16/25 01/16/25 10:41 16:30 WBC 17.6 H D RBC 3.21 L Hgb 9.9 L D Hct 28.9 L MCV 90 MCH 30.8 MCHC 34.3 RDW Std Deviation 43.4 Plt Count 134 L D Neut % (Auto) 86 H Lymph % (Auto) 7 L [place] % (Auto) 6 Eos % (Auto) 0 Baso % (Auto) 0 Neut # (Auto) 15.1 H Lymph # (Auto) 1.2 [place] # (Auto) 1.1 H Eos # (Auto) 0.0 Baso # (Auto) 0.0 Immature Gran # (Auto) 0.14 H Absolute Nucleated RBC 0.00 Immature Gran % 1 H Nucleated RBC % 0 Rho(D) IG Studies Ready Maternal Bleed Negative Assessment & Plan Problem List (1) Normal labor and delivery: Status: Acute Assessment Comment Assessment comment: 24 hr pp oh Plan Comment Plan Comment: Discharge home today with baby. Continue vitamins and iron. Tylenol ibuprofen for pain. Discussed danger signs symptoms and ER precautions. Discussed signs symptoms of infection. Discussed comfort measures for midline episiotomy including sitz bath's and applying ice packs. Increase fluids. Can and return in a week for check and elevated BP thank you thank Time Spent With Patient Time: Total time spent is greater than 50% in coordination of care (as documented) at patient's floor/unit and/or counseling patient:
--- NOTE | 2025-01-17 08:52 | PD.LDDS ---
DS: Providers Provider Date of admission: 01/15/25 19:32 Primary care physician: Physician No Primary/Family Admitting Provider: Pearl Martínez CNM Attending Provider on Admission: Joey Lopez MD Consults: 01/16/25 09:08 Referral Routine Comment: Attending Provider on DC: Pearl Martínez CNM Discharging Provider: Pearl Martínez CNM DS: Diagnosis Problem List Completed Was Problem List Reviewed/Reconciled?: Yes Summary/Hosp Course Brief History: 24-year-old 1 para 0 with complaints of labor admitted to labor and delivery. Patient was OB transfer from Dr. Solomon office with records. Last. April 18, 2025. Estimated due date January 23, 2025. Patient has a history of positive chlamydia. Her and her partner were treated with Zithromax x 1. Test of cure in October was negative. GC has been negative throughout. Patient is O-, antibody screen negative, she got RhoGAM at 28 weeks. Hepatitis B negative, HIV negative, hep C negative, had a abnormal 1 hour every 3 hours normal. And GBS is negative. Patient denies existence of any chronic illness. Denies social habits. She has had no surgeries. Peripartum Data Delivery Method: Normal Vaginal Delivery Episiotomy Description: Midline Laceration Description: no complications: none Time Spent with Patient Time attestation: Total time spent providing and/or coordinating discharge services: Exam Vital Signs Temp Pulse Resp BP Pulse Ox O2 Del Method 98.3 F 98 17 111/73 100 Room Air 01/17/25 04:45 01/17/25 04:45 01/17/25 04:45 01/17/25 04:45 01/17/25 04:45 01/17/25 04:45 Discharge Plan Plan Patient Disposition: HOME (Self Care) Patient condition on transfer: Stable Prescriptions/Referrals Prescriptions/Med Rec: No Action Classic 28 mg iron- 800 mcg tablet 1 tab PO QDAY Referrals: No Primary/Family,Physician [Primary Care Provider] - Patient/Caregiver Discharge Instructions Meds to Beds: No Discharge Activity: resume usual activities Print Language: Kinyarwanda Activity Restrictions/Additional Instructions: Discharge home with baby. Continue to use maternity girdle for support and comfort. Discussed PIH symptoms with patient and ER precautions with parameters. Tylenol ibuprofen for pain. Discussed danger signs and symptoms. Discussed comfort measures and sitz bath's for episiotomy. No sex. Increase fluids. And return in a week for BP check Stand Alone Forms: Frances Award Info., Patient Portal Info Letter Discharge Order Discharge Orders: Discharge (Routine); Ordered 01/17/25 Ordered By: Pearl Martínez Planned Discharge Date 01/17/25
[2025-01-17] MEDS: DIPHTH,PERTUSS(ACELL),TET VAC 0.5 ML SYR- ADULT IMi (09:29)
[2025-01-17] MEDS: RINGERS LACTATED 1000 ML 1,000 ML 999 ML IV (16:19)
--- NOTE | 2025-01-17 17:01 | XR_ITS ---
Examination: PA lateral chest 2 views Technique: Upright PA lateral chest 2 views Date and time: January 17, 2025, 1724 hrs. Indications: Sepsis alert Findings: Normal heart size No lobar pneumonia. The osseous structures are intact Impression: No lobar pneumonia
--- NOTE | 2025-01-17 17:18 | ESPR_ITS ---
Subjective Subjective Interval history: headache, chills, Denies URI s/s, no congestion Exam Vital Signs Temp Pulse Resp BP Pulse Ox O2 Del Method 98.0 F 85 12 132/88 H 98 Room Air 01/17/25 07:54 01/17/25 07:54 01/17/25 07:54 01/17/25 07:54 01/17/25 07:54 01/17/25 07:54 Narrative Exam temp 100.4. BP 125/82, Pulse: 85. abdomen non tender, no foul smelling lochia, lungs cllear Objective Labs 01/16/25 16:30 01/15/25 16:15 Labs: Laboratory Results - last 24 hr 01/16/25 01/16/25 10:41 16:30 WBC 17.6 H D RBC 3.21 L Hgb 9.9 L D Hct 28.9 L MCV 90 MCH 30.8 MCHC 34.3 RDW Std Deviation 43.4 Plt Count 134 L D Neut % (Auto) 86 H Lymph % (Auto) 7 L [place] % (Auto) 6 Eos % (Auto) 0 Baso % (Auto) 0 Neut # (Auto) 15.1 H Lymph # (Auto) 1.2 [place] # (Auto) 1.1 H Eos # (Auto) 0.0 Baso # (Auto) 0.0 Immature Gran # (Auto) 0.14 H Absolute Nucleated RBC 0.00 Immature Gran % 1 H Nucleated RBC % 0 Rho(D) IG Studies Ready Maternal Bleed Negative Assessment & Plan Problem List (1) Normal labor and delivery: Status: Acute Assessment Comment Assessment comment: post fever Plan Comment Plan Comment: Consistent with OB due to patient developing a temperature this afternoon 100.4. Repeat CBC ordered now. Blood cultures x 2. In-N-Out cath for urinalysis. Chest x-ray 2 views ordered. Patient will be started on triple antibiotics. Clindamycin 900 Q8. Gentamicin 5 mg/kg. And ampicillin 2 g every 6 hours. Increase fluids. Cooling measures. Tylenol 2 tabs every 4 hours as needed for temp and will reevaluate after lab results are ready. Discharge canceled Time Spent With Patient Time: Total time spent is greater than 50% in coordination of care (as documented) at patient's floor/unit and/or counseling patient:
[2025-01-17] MEDS: SODIUM BENZOATE IV (17:35)
[2025-01-17] MEDS: CAFFEINE IV (17:35)
[2025-01-17] MEDS: SODIUM CHLORIDE 0.9% IV (17:35)
--- NOTE | 2025-01-17 18:01 | PC.NURSE ---
RN SPOKE WITH PHARMACY REGARDING GENT AND CLINDAMYCIN ADMINISTRATION TOGETHER COMPATIBILITY. PHARMACIST ORLIN BENJAMINAYED TO RUN TOGETHER AT [facility]
[2025-01-17] MEDS: CLINDAMYCIN 900MG IVPB 900 MG in PRE-MIXED 1 BAG 50 MG IV (18:03)
[2025-01-17 18:22] LABS: Basophils # (Auto) 0.0 Thou/mm3 (0.0-0.2); Basophils % (Auto) 0 % (0-2.5); Eosinophils # (Auto) 0.1 Thou/mm3 (0.0-0.5); Eosinophils % (Auto) 0 % (0-10); Hematocrit 28.2 % (36.0-46.0); Hemoglobin 9.7 g/dL (12.0-16.0); Immature Granulocytes Auto 0.17 Thou/mm3 (0.00-0.00); Lymphocytes # (Auto) 1.5 Thou/mm3 (1.0-4.8); Lymphocytes % (Auto) 11 % (10-50); Mean Corpuscular HGB Conc 34.4 g/dl (31.0-37.0); Mean Corpuscular Hemoglobin 30.9 pg (25.0-35.0); Mean Corpuscular Volume 90 fL (80-100); Monocytes # (Auto) 0.9 Thou/mm3 (0.0-0.8); Monocytes % (Auto) 7 % (0-12); Neutrophils # (Auto) 10.9 Thou/mm3 (1.8-7.7); Neutrophils % (Auto) 80 % (37-80); Nucleated Red Blood Cell # 0.00 Thou/mm3 (0.00-0.00); Nucleated Red Blood Cell % 0 /100 WBC (0); Platelet Count 158 Thou/mm3 (140-440); RDW Standard Deviation 44.5 fL (36.4-46.3); Red Blood Count 3.14 Miln/mm3 (4.00-5.20); White Blood Count 13.5 Thou/mm3 (3.6-11.0)
[2025-01-17 18:24] LABS: COVID-19 Antigen (In-House) Negative (Negative)
--- NOTE | 2025-01-17 18:28 | PD.EVENT ---
Documentation for date of: 01/17/25 Event Note Event Note: I was called by TYLER Martínez regarding patient having temp of 100.4F and headache. I requested for CBC and blood cultures to be drawn, UA by straight cath, and CXR to be done. Covid swab. CXR has resulted no pneumonia. Covid swab negative. Awaiting other labs. I also instructed for patient to be started on triple abx therapy: Gentamycin 5mg/kg IV q24hr, Ampicillin 2g IV Q6hr, Clindamycin 800mg IV Q8hr. Tylenol for PRYOR. Will continue to closely observe and await completion of workup. Plan to continue IV abx therapy until 24hr afebrile. Maria L Sánchez MD
[2025-01-17] MEDS: Ampicillin Inj 2,000 MG in SODIUM CHLORIDE 0.9% (POP) 100 ML 200 MG IV ×2 (18:58→23:49)
[2025-01-17] MEDS: ACETAMINOPHEN IVPB 1,000 MG/100 ML VIAL 250 MG IV (22:05)
[2025-01-18 00:06] LABS: Collection Type, Urine Clean Catch; Squamous Epithelial Cell,Urine 0 /hpf (0-5)
[2025-01-18 00:13] LABS: Bilirubin,Urine Negative (Negative); Blood,Urine Negative (Negative); Clarity,Urine Clear (Clear/Hazy); Color,Urine Colorless (Lt Yel-Yel); Glucose, Urine Negative (Negative); Ketones,Urine Negative (Negative); Leukocyte Esterase,Urine Negative (Negative); Nitrite,Urine Negative (Negative); PH,Urine 7.0 (5.0-7.0); Protein,Urine Trace (Neg - Trace); RBC,Urine 1 /hpf (0-3); Specific Gravity,Urine 1.009 (1.001-1.035); Urobilinogen,Urine Negative mg/dL (0.0-1.0); WBC,Urine 4 /hpf (0-5)
[2025-01-18] MEDS: CLINDAMYCIN 900MG IVPB 900 MG in PRE-MIXED 1 BAG 50 MG IV ×3 (00:45→16:19)
[2025-01-18 03:14] VITALS: BP 113/72; PULSE 86; RESP 20; TEMP 37.1; O2SAT 99
[2025-01-18] MEDS: ACETAMINOPHEN IVPB 1,000 MG/100 ML VIAL 250 MG IV ×2 (05:57→12:23)
[2025-01-18] MEDS: Ampicillin Inj 2,000 MG in SODIUM CHLORIDE 0.9% (POP) 100 ML 200 MG IV ×3 (06:09→17:34)
[2025-01-18 06:34] LABS: Basophils # (Auto) 0.1 Thou/mm3 (0.0-0.2); Basophils % (Auto) 0 % (0-2.5); Eosinophils # (Auto) 0.2 Thou/mm3 (0.0-0.5); Eosinophils % (Auto) 1 % (0-10); Hematocrit 29.5 % (36.0-46.0); Hemoglobin 10.0 g/dL (12.0-16.0); Immature Granulocytes Auto 0.13 Thou/mm3 (0.00-0.00); Lymphocytes # (Auto) 2.1 Thou/mm3 (1.0-4.8); Lymphocytes % (Auto) 17 % (10-50); Mean Corpuscular HGB Conc 33.9 g/dl (31.0-37.0); Mean Corpuscular Hemoglobin 30.4 pg (25.0-35.0); Mean Corpuscular Volume 90 fL (80-100); Monocytes # (Auto) 0.9 Thou/mm3 (0.0-0.8); Monocytes % (Auto) 7 % (0-12); Neutrophils # (Auto) 9.3 Thou/mm3 (1.8-7.7); Neutrophils % (Auto) 74 % (37-80); Nucleated Red Blood Cell # 0.00 Thou/mm3 (0.00-0.00); Nucleated Red Blood Cell % 0 /100 WBC (0); Platelet Count 145 Thou/mm3 (140-440); RDW Standard Deviation 44.8 fL (36.4-46.3); Red Blood Count 3.29 Miln/mm3 (4.00-5.20); White Blood Count 12.6 Thou/mm3 (3.6-11.0)
[2025-01-18 07:30] VITALS: BP 125/87; PULSE 75; RESP 18; TEMP 36.6; O2SAT 99
[2025-01-18] MEDS: DOCUSATE SOD 100 MG CAPSULE PO (08:44)
--- NOTE | 2025-01-18 08:44 | PD.LDPPPRG ---
Subjective Subjective Interval history: Feeling better. Less headache. No dizziness or pain on ambulation. Exam Vital Signs Temp Pulse Resp BP Pulse Ox O2 Del Method 98.7 F 86 20 113/72 99 Room Air 01/18/25 03:14 01/18/25 03:14 01/18/25 03:14 01/18/25 03:14 01/18/25 03:14 01/18/25 03:14 Narrative Exam Vital signs stable afebrile. Patient's been afebrile since 1900. Pressures are soft. Euthyroid. Abdomen soft nontender. Perineum is healing no swelling no redness. Small lochia. Negative Homans' sign. 2+ DTRs. The chest x-ray was negative. Her WBCs decreased to 1200. COVID test was negative. Blood cultures are growing Objective Labs 01/18/25 06:12 01/15/25 16:15 Labs: Laboratory Results - last 24 hr 01/17/25 01/17/25 01/17/25 17:10 17:50 21:29 WBC 13.5 H RBC 3.14 L Hgb 9.7 L Hct 28.2 L MCV 90 MCH 30.9 MCHC 34.4 RDW Std Deviation 44.5 Plt Count 158 Neut % (Auto) 80 Lymph % (Auto) 11 [place] % (Auto) 7 Eos % (Auto) 0 Baso % (Auto) 0 Neut # (Auto) 10.9 H Lymph # (Auto) 1.5 [place] # (Auto) 0.9 H Eos # (Auto) 0.1 Baso # (Auto) 0.0 Immature Gran # (Auto) 0.17 H Absolute Nucleated RBC 0.00 Immature Gran % 1 H Nucleated RBC % 0 Ur Collection Type Clean Catch Urine Color Colorless A Urine Clarity Clear Urine pH 7.0 Ur Specific [place] 1.009 Urine Protein Trace Urine Glucose (UA) Negative Urine Ketones Negative Urine Blood Negative Urine Nitrite Negative Urine Bilirubin Negative Urine Urobilinogen (Auto) Negative Ur Leukocyte Esterase Negative Urine RBC 1 Urine WBC 4 Ur Squamous Epith Cells 0 Urine Bacteria None SARS-CoV-2 Ag (Rapid) Negative 01/18/25 06:12 WBC 12.6 H RBC 3.29 L Hgb 10.0 L Hct 29.5 L MCV 90 MCH 30.4 MCHC 33.9 RDW Std Deviation 44.8 Plt Count 145 Neut % (Auto) 74 Lymph % (Auto) 17 [place] % (Auto) 7 Eos % (Auto) 1 Baso % (Auto) 0 Neut # (Auto) 9.3 H Lymph # (Auto) 2.1 [place] # (Auto) 0.9 H Eos # (Auto) 0.2 Baso # (Auto) 0.1 Immature Gran # (Auto) 0.13 H Absolute Nucleated RBC 0.00 Immature Gran % 1 H Nucleated RBC % 0 Ur Collection Type Urine Color Urine Clarity Urine pH Ur Specific [place] Urine Protein Urine Glucose (UA) Urine Ketones Urine Blood Urine Nitrite Urine Bilirubin Urine Urobilinogen (Auto) Ur Leukocyte Esterase Urine RBC Urine WBC Ur Squamous Epith Cells Urine Bacteria SARS-CoV-2 Ag (Rapid) Assessment & Plan Problem List (1) Normal labor and delivery: Status: Acute Assessment Comment Assessment comment: 48 hr pp, resolved temp Plan Comment Plan Comment: If patient remains afebrile will stop antibiotics at 8 PM. Continue to monitor temperature and vital signs. Tylenol ibuprofen for discomfort. Force fluids. And will reevaluate in the morning for discharge. Time Spent With Patient Time: Total time spent is greater than 50% in coordination of care (as documented) at patient's floor/unit and/or counseling patient:
[2025-01-18 12:13] VITALS: BP 124/76; PULSE 74; RESP 18; TEMP 36.8; O2SAT 98
[2025-01-18 15:11] VITALS: BP 133/86; PULSE 72; RESP 18; TEMP 36.8; O2SAT 98
[2025-01-18 20:00] VITALS: BP 143/92; PULSE 79; RESP 17; TEMP 37.3; O2SAT 98
[2025-01-19 04:00] VITALS: BP 113/74; PULSE 15; PULSE 90; RESP 15; TEMP 36.9; O2SAT 98
[2025-01-19 08:25] VITALS: BP 132/86; PULSE 72; RESP 16; TEMP 36.4; O2SAT 98
[2025-01-19] MEDS: DOCUSATE SOD 100 MG CAPSULE PO (09:03)
[2025-01-19] MEDS: ACETAMINOPHEN 325 MG TABLET PO (09:03)
--- NOTE | 2025-01-19 09:59 | PD.LDPPPRG ---
Subjective Subjective Interval history: slight headache today. feels better. no dizziness. pumping and breast feeding Exam Vital Signs Temp Pulse Resp BP Pulse Ox O2 Del Method 97.5 F 72 16 132/86 H 98 Room Air 01/19/25 08:25 01/19/25 08:25 01/19/25 08:25 01/19/25 08:25 01/19/25 08:25 01/19/25 08:25 Narrative Exam Vital signs stable afebrile. Breasts are soft. Fundus firm below the umbilicus. Perineum intact no swelling. Small lochia. Uterus well involuted. Episiotomy is well-approximated. Negative Homans' sign. 2+ DTRs Objective Labs 01/18/25 06:12 01/15/25 16:15 Assessment & Plan Problem List (1) Normal labor and delivery: Status: Acute Assessment Comment Assessment comment: 48 hr pp Plan Comment Plan Comment: Discharge home with baby. Continue vitamins and iron. Tylenol ibuprofen for pain. Discussed sitz bath's and comfort measures for episiotomy. Discussed danger signs and symptoms and ER precautions with parameters. And I discussed signs symptoms of infection. Increase rest. Increase fluids. Return in 2 weeks check Time Spent With Patient Time: Total time spent is greater than 50% in coordination of care (as documented) at patient's floor/unit and/or counseling patient:
--- NOTE | 2025-01-19 10:01 | ESDS_ITS ---
DS: Providers Provider Date of admission: 01/15/25 19:32 Primary care physician: Physician No Primary/Family Admitting Provider: Pearl Martínez CNM Attending Provider on Admission: Joey Lopez MD Consults: 01/16/25 09:08 Referral Routine Comment: Attending Provider on DC: Pearl Martínez CNM Discharging Provider: Pearl Martínez CNM DS: Diagnosis Problem List Completed Was Problem List Reviewed/Reconciled?: Yes Summary/Hosp Course Brief History: 24-year-old 1 para 0 with complaints of labor admitted to labor and delivery. Patient was OB transfer from Dr. Solomon office with records. Last. April 18, 2025. Estimated due date January 23, 2025. Patient has a history of positive chlamydia. Her and her partner were treated with Zithromax x 1. Test of cure in October was negative. GC has been negative throughout. Patient is O-, antibody screen negative, she got RhoGAM at 28 weeks. Hepatitis B negative, HIV negative, hep C negative, had a abnormal 1 hour every 3 hours normal. And GBS is negative. Patient denies existence of any chronic illness. Denies social habits. She has had no surgeries. Peripartum Data Delivery Method: Normal Vaginal Delivery Episiotomy Description: Midline Laceration Description: no complications: spinal headache Time Spent with Patient Time attestation: Total time spent providing and/or coordinating discharge services: Exam Vital Signs Temp Pulse Resp BP Pulse Ox O2 Del Method 97.5 F 72 16 132/86 H 98 Room Air 01/19/25 08:25 01/19/25 08:25 01/19/25 08:25 01/19/25 08:25 01/19/25 08:25 01/19/25 08:25 Discharge Plan Plan Patient Disposition: HOME (Self Care) Patient condition on transfer: Stable Prescriptions/Referrals Prescriptions/Med Rec: No Action Classic 28 mg iron- 800 mcg tablet 1 tab PO QDAY Referrals: No Primary/Family,Physician [Primary Care Provider] Patient/Caregiver Discharge Instructions Meds to Beds: No Discharge Activity: resume usual activities Education Materials: After a Vaginal , Breast Care After , : Caring for Yourself, Change Expect Parents Print Language: Armenian Activity Restrictions/Additional Instructions: Discharge home with baby. Continue to use maternity girdle for support and comfort. Discussed PIH symptoms with patient and ER precautions with parameters. Tylenol ibuprofen for pain. Discussed danger signs and symptoms. Discussed comfort measures and sitz bath's for episiotomy. No sex. Increase fluids. And return in a week for BP check Stand Alone Forms: Frances Award Info., Patient Portal Info Letter Vaccines Vaccines Given During Stay: Rhogam and TDaP Discharge Order Discharge Orders: Discharge (Routine); Ordered 01/19/25 Ordered By: Pearl Martínez Planned Discharge Date 01/19/25
[2025-01-19 12:00] VITALS: BP 132/90; PULSE 76; RESP 16; TEMP 36.8; O2SAT 98
== END 2025-01-19 15:02 | disposition home or self-care (01) | DRG 560 ==
LOC: S4SX 01-16 09:05 → S4NX 01-16 12:24
PROVIDERS: Admitting Provider Advanced Practice Midwife; Visit Provider Pediatrics
DX: O69.81X0 Labor and delivery complicated by cord around neck, without compression, not applicable or unspecified (principal); Z37.0 Single live birth; Z3A.38 38 weeks gestation of pregnancy; Z23 Encounter for immunization; O86.4 Pyrexia of unknown origin following delivery
CPT/HCPCS: 36415; 59409; 71046; 76805; 80053; 81001; 82570; 83615; 84156; 84550; 85025; 85384; 85461; 85610; 85730; 86780; 86850; 86900; 86901; 87040; 87086; 87811; 90715; 94762; J0131; J0290; J0736; J1580; J2590; J2790; J2795; J3010; J3490; J7050; J7120; J7999; S0191; A9270

== ENCOUNTER 2025-01-20 18:53 | Emergency (ER) | payer MEDICAID, SELFPAY ==
[2025-01-20 19:33] VITALS: BP 126/88; PULSE 87; RESP 18; TEMP 37.6; O2SAT 98
--- NOTE | 2025-01-20 19:49 | XR_ITS ---
Examination: CT brain head without contrast. 2-D sagittal coronal reconstructions Date and time of exam:January 20, 20252007 hrs. Indications: Generalized head pain with dizziness today CTDI: vol (mGy):49.8 DLP: (mGycm):951 Technique: Multiple CT axial sections of the brain have been obtained, 5 mm slice thickness. Contrast has not been administered. 2-D sagittal, coronal reconstructions have been obtained Low dose protocols were performed. One or more of the following dose reduction techniques were used; automated exposure control, adjustment of the mA and/or KV according to patient size, use of iterative reconstruction technique. Findings: No significant ventricular enlargement. Intra-axial or extra-axial hemorrhage density is not seen. No mass effect or midline shift Basal cisterns are not remarkable. Fourth ventricle is midline. Cranial vault intact. Impression: Negative for acute hemorrhage, mass effect or midline shift If symptoms persist, consider brain MRI follow-up
--- NOTE | 2025-01-20 19:49 | PD.EDRME ---
Rapid Medical Screening Exam E Arrival date/time: 01/20/25 18:53 This is a case of 54-year-old female with no medical history came into the emergency room due to headache today patient had vaginal delivery last Wednesday and was discharged yesterday patient was also given epidural injection worsening of the pain this patient decided to start consulted in the emergency room denies any numbness weakness tingling sensation denies any blurring of the vision Chief Complaint: Headache Time Seen by Provider: 01/20/25 19:13 Vital signs: Vital Signs Temperature 99.7 F 01/20/25 19:33 Pulse Rate 87 01/20/25 19:33 Respiratory Rate 18 01/20/25 19:33 Blood Pressure 126/88 H 01/20/25 19:33 Pulse Oximetry (%) 98 01/20/25 19:33 Oxygen Delivery Method Room Air 01/20/25 19:33
[2025-01-20 20:10] LABS: Basophils # (Auto) 0.1 Thou/mm3 (0.0-0.2); Basophils % (Auto) 1 % (0-2.5); Eosinophils # (Auto) 0.1 Thou/mm3 (0.0-0.5); Eosinophils % (Auto) 1 % (0-10); Hematocrit 32.3 % (36.0-46.0); Hemoglobin 10.6 g/dL (12.0-16.0); Immature Granulocytes Auto 0.15 Thou/mm3 (0.00-0.00); Lymphocytes # (Auto) 1.5 Thou/mm3 (1.0-4.8); Lymphocytes % (Auto) 16 % (10-50); Mean Corpuscular HGB Conc 32.8 g/dl (31.0-37.0); Mean Corpuscular Hemoglobin 29.9 pg (25.0-35.0); Mean Corpuscular Volume 91 fL (80-100); Monocytes # (Auto) 0.5 Thou/mm3 (0.0-0.8); Monocytes % (Auto) 5 % (0-12); Neutrophils # (Auto) 6.9 Thou/mm3 (1.8-7.7); Neutrophils % (Auto) 76 % (37-80); Nucleated Red Blood Cell # 0.00 Thou/mm3 (0.00-0.00); Nucleated Red Blood Cell % 0 /100 WBC (0); Platelet Count 261 Thou/mm3 (140-440); RDW Standard Deviation 44.7 fL (36.4-46.3); Red Blood Count 3.55 Miln/mm3 (4.00-5.20); White Blood Count 9.1 Thou/mm3 (3.6-11.0)
--- NOTE | 2025-01-20 20:15 | PD.EDHA ---
ED Headache RME/HPI General Chief Complaint: Headache Stated Complaint: HEADACHE SINCE 2399, JUST HAD EPIDURAL ON 01/16 Time Seen by Provider: 01/20/25 19:13 Arrival date/time: 01/20/25 18:53 RME / HPI RME / HPI Narrative: 24-year-old female patient came in with family for evaluation regarding headache. Onset of symptoms since last night as worsening headache especially if the patient is trying to ambulate and stand up described as dull ache severity 10 out of 10 associated with nausea. Patient's headache is less when patient is lying down. Patient denies any fever denies any slurring of speech denies any neck pain denies any other complaints patient had epidural anesthesia done last Wednesday. She was discharged yesterday. While in the hospital she is still having headache however is tolerable due to pain medication according to her. Patient is breast-feeding. Denies any blurry vision. Related Data Home Medications ?Medication ?Instructions ?Recorded ?Confirmed vits no.126-ferrous fum 1 tab PO QDAY 11/10/24 01/15/25 28 mg iron-folic acid 800 mcg tablet (Classic ) Allergies Allergy/AdvReac Type Severity Reaction Status Date / Time No Known Allergies Allergy Verified 01/20/25 18:57 Review of Systems Review of Systems Narrative Review of Systems: Review of system reviewed and within normal limits except mentioned in HPI ED Exam Narrative Physical exam: VITAL SIGNS: Reviewed. GENERAL APPEARANCE: Alert and interactive, follows commands, no acute distress, HEAD AND FACE: Non-traumatic. ENT: PERRL, pink conjunctivitis, eyelid no trauma, Mucous membrane moist. NECK: Supple, nontender, no nuchal rigidity. CHEST: No tenderness, no crepitus, no paradoxical movement, no retractions. LUNGS: Clear, well ventilated, symmetric, no rales, no wheezing, no ronchi, no stridor, good breath sounds bilaterally. HEART: Regular rate, regular rhythm, no murmur, no gallops. ABDOMEN: Soft, positive bowel sounds, nondistended, no guarding, nontender, no rebound, no masses, RECTAL: Deferred. GENITAL: Deferred. NEUROLOGICAL: Gross motor function intact sensory function intact, Appropriate for age. MUSCULOSKELETAL: low back nontender, full range of motion. EXTREMITIES: Nontender, full range of motion. SKIN: Color pink, dry, no rash, no lacerations, no abrasions, no contusions. LYMPHATICS: Deferred. Course Quality Measures none Orders Category Date Time Status CT head/brain wo con Stat Exams 01/20/25 19:49 Completed CBC Stat Lab 01/20/25 20:02 Completed CMP [Comprehensive Metabolic Panel] Stat Lab 01/20/25 20:02 Completed Acetaminophen Tab [Tylenol ES Tab] Med 01/20/25 20:13 Discontinued 1,000 mg PO X1 ONE Lidocaine Jelly 2% 5 ml [Xylocaine Jelly 2% 5 ml] Med 01/20/25 20:28 Discontinued 2.5 ml TOP X1 ONE Ondansetron Odt [Zofran Odt] Med 01/20/25 20:13 Discontinued 4 mg PO X1 ONE Sodium Chloride 0.9% 1000 ml [Ns] 1,000 ml Med 01/20/25 20:14 Discontinued IV 999 mls/hr Vital Signs Vital signs: Vital Signs Temperature 99.7 F 01/20/25 19:33 Pulse Rate 87 01/20/25 19:33 Respiratory Rate 18 01/20/25 19:33 Blood Pressure 126/88 H 01/20/25 19:33 Pulse Oximetry (%) 98 01/20/25 19:33 Oxygen Delivery Method Room Air 01/20/25 19:33 Headache MDM Narrative MDM Narrative:: 24-year-old female patient came in with family for evaluation regarding headache. Onset of symptoms since last night as worsening headache especially if the patient is trying to ambulate and stand up described as dull ache severity 10 out of 10 associated with nausea. Patient's headache is less when patient is lying down. Patient denies any fever denies any slurring of speech denies any neck pain denies any other complaints patient had epidural anesthesia done last Wednesday. She was discharged yesterday. While in the hospital she is still having headache however is tolerable due to pain medication according to her. Patient is breast-feeding. Denies any blurry vision. Patient received IV fluids, Tylenol p.o. and Zofran. Patient was referred to anesthesia, and was seen in the emergency room and and she did a sphenopalatine block using 2% lidocaine jelly. On reevaluation patient verbalized significant provide of headache. Patient is stable for discharge home. Patient data External records reviewed:: None Clinical information provided by:: patient and family Social determinants that could affect healthcare access:: none Patient has the following chronic illnesses:: None How is presenting disease/condition affected by chronic disease/condition?: exacerbated by Evaluation data The following diagnostics were reviewed and interpreted by me:: lab results and radiology exam(s) Lab and/or radiology exams considered but not ordered:: None Interpretation Summary: CBC came back unremarkable CMP came back normal CT scan of the head also came back unremarkable./Discussed with the patient. Medications / Prescriptions Medications or Prescriptions considered but not ordered:: None Medication administrations:: Medication Administration History Discontinued Medications Acetaminophen (Acetaminophen 500 Mg Tablet) 1,000 mg PO X1 ONE Stop: 01/20/25 20:14 Last Admin: 01/20/25 20:25 Dose: 1,000 mg Documented By: CCT Sodium Chloride (Ns) 1,000 mls @ 999 mls/hr IV .Q1H1M ONE Stop: 01/20/25 21:14 Last Infusion: 01/20/25 21:32 Dose: Infused Documented By: Admin: 01/20/25 20:25 Dose: 999 mls/hr Documented By: CCT Lidocaine HCl (Lidocaine Jelly 2% 5 Ml Tube) 2.5 ml TOP X1 ONE Stop: 01/20/25 20:29 Last Admin: 01/20/25 20:59 Dose: 2.5 ml Documented By: CCT Comments: Administered by Dr. Grecia Butterfield CRNA Ondansetron HCl (Ondansetron Odt 4 Mg Tabrap) 4 mg PO X1 ONE; Protocol Stop: 01/20/25 20:14 Last Admin: 01/20/25 20:24 Dose: 4 mg Documented By: CCT Tylenol, fluids, Zofran Consultations Consultation(s) initiated? (list below): Yes Consultation #1 (Physician, Specialty, Details): Anesthesia on-call, discussed the case, thank you Diagnosis Differential diagnosis headache: tension headache and headache Most likely diagnosis given after review of the tests above:: Post epidural headache Admission Indicated Admission indicated?: not indicated Explain why admission is indicated or not indicated:: Stable Admission Request Was there a request for admission?: No Disposition Plan Disposition Plan: Discharge Discharge Attestation Discharge Attestation: The patient and all family members were given an opportunity to ask questions and understood the discharge instructions. Discharge instructions specifically effects, indications for sooner follow up or return to the emergency department, and the expected course of current diagnosis. Patient condition: Stable Discharge Plan Plan Patient Disposition: HOME (Self Care) Discharge Disposition comment: Stable Prescriptions/Referrals Prescriptions/Med Rec: No Action Classic 28 mg iron- 800 mcg tablet 1 tab PO QDAY Problem List Clinical Impression: Epidural anesthesia-induced headache during labor and delivery Patient/Caregiver Discharge Instructions Discharge Activity: activity as tolerated Education Materials: Self-Care for Headaches Additional Instructions: Thank you for the opportunity for serving you today. You are stable for discharged . You are advised to: Follow-up with your PCP in 1 to 2 days Return to ED for worsening of symptoms Increase oral fluids Take Tylenol 1 g every 8 hours as needed for headache Print Language: Kiswahili Stand Alone Forms: Frances Award Info., Patient Portal Info Letter SALLY/[place] Supervising Physician SALLY/[place] Supervising Physician: MD Dagoberto
[2025-01-20 20:21] VITALS: BP 138/72; PULSE 75; RESP 16; TEMP 37.7; O2SAT 98
[2025-01-20] MEDS: ONDANSETRON ODT 4 MG TABRAP PO (20:24)
[2025-01-20] MEDS: SODIUM CHLORIDE 0.9% 1000 ML 1,000 ML 999 ML IV (20:25)
[2025-01-20] MEDS: ACETAMINOPHEN 500 MG TABLET 1000 MG PO (20:25)
[2025-01-20 20:28] LABS: Alanine Aminotransferase 17 U/L (10-49); Albumin, Serum 3.7 gm/dL (3.5-5.0); Albumin/Globulin Ratio 1.6 (1.2-2.2); Alkaline Phosphatase 106 U/L (46-116); Anion Gap 11 (7-16); Aspartate Amino Transferase 21 U/L (0-34); BUN/Creatinine Ratio 9 Ratio (12-20); Bilirubin,Total 0.4 mg/dL (0.3-1.2); Blood Urea Nitrogen 6 mg/dL (9-23); Calcium 8.9 mg/dL (8.3-10.6); Calcium (Corrected) 9.1 mg/dL (8.5-10.1); Carbon Dioxide 23.8 mMol/L (20.0-31.0); Chloride 110 mMol/L (98-107); Creatinine (Component) 0.7 mg/dL (0.6-1.3); Globulin 2.3 gm/dL (2.3-3.5); Glucose 94 mg/dL (74-106); Osmolality,Calculated 286 (275-295); Potassium 4.7 mMol/L (3.4-5.1); Sodium 145 mMol/L (136-145); Total Protein 6.0 gm/dL (5.7-8.2); eGFR > 60 See Note
--- NOTE | 2025-01-20 20:51 | ESPR_ITS ---
Documentation for date of: 01/20/25 Anesthesia Progress Note Progress Note Most recent Vital Signs: Last Vital Signs Temp 37.7 C 01/20/25 20:21 Pulse 75 01/20/25 20:21 Resp 16 01/20/25 20:21 BP 138/72 H 01/20/25 20:21 Pulse Ox 98 01/20/25 20:21 O2 Del Method Room Air 01/20/25 20:21 Narrative: We was calling to ER by the Dr cupola [employer] , to evaluate a patient 24 y/o ,with hx of vaginal delivery on Jan 16 , and epidural for labor pain on January 15 , discharged two days ago , Pt c/o PDPH , all neurological exams negative . Sphenopalatine block with Lidocaine 2% jelly done . Re-evaluation :Pt reported significant improvement of symptoms .
[2025-01-20] MEDS: LIDOCAINE JELLY 2% 5 ML TUBE 2.5 ML TOP (20:59)
[2025-01-20 22:45] VITALS: BP 136/90; PULSE 70; RESP 18; TEMP 37.2; O2SAT 99
== END 2025-01-20 22:45 | disposition home or self-care (01) ==
LOC: SERX 22:07
PROVIDERS: Nurse Practitioner Family; Emergency Provider Emergency Medicine; PCP Obstetrics & Gynecology
DX: O89.4 Spinal and epidural anesthesia-induced headache during the puerperium (principal)
CPT/HCPCS: 36415; 70450; 80053; 85025; 96360; 99283; J7030; Q0162; A9270